=== PATIENT | male | born 1970 | race African-American/Black ===

== ENCOUNTER 2021-07-16 10:26 | Inpatient (IN) | payer MEDICAID ==
[~2021-07-16] VITALS: Ht 180.3 cm; Wt 105.2 kg
[2021-07-16] MEDS ORDERED: ACETAMINOPHEN 325MG TABLET PO STA (10:40)
[2021-07-16] MEDS ORDERED: VANCOMYCIN 1 G PREMIX 200 ML IV ONE (10:45)
[2021-07-16] MEDS ORDERED: PIPERACILLIN/TAZ 3.375G PREMIX 50 ML IV ONE (10:45)
[2021-07-16 11:18] LABS: HEMATOCRIT. 34.1 % (42.0-52.0); HEMOGLOBIN. 11.4 g/dL (14.0-18.0); MEAN CORPUSCULAR VOLUME 74.3 fL (80.0-94.0); MEAN PLATELET VOLUME 9.9 fl (7.4-10.4); PLATELET 97 x1000/uL (130-400); RED BLOOD CELL COUNT 4.58 mill/uL (4.7-6.1); RED CELL DISTRIBUTION WIDTH 14.6 % (11.6-14.6)
[2021-07-16 11:19] LABS: CHLORIDE 88 mEq/L (98-107)
[2021-07-16 11:28] LABS: CREATINE KINASE 774 IU/L (39-308)
[2021-07-16 12:39] LABS: PLATELET ESTIMATE DECREASED
[2021-07-16 13:03] LABS: CLARITY URINE TURBID (CLEAR); COLOR URINE DARK YELLOW (YELLOW); KETONES URINE TRACE (NEGATIVE); LEUKOCYTE ESTERASE URINE 2+ (NEGATIVE); NITRITE URINE NEGATIVE (NEGATIVE); OCCULT BLOOD URINE 3+ (NEGATIVE); PROTEIN URINE 3+ (NEGATIVE)
[2021-07-16 14:58] LABS: D-DIMER 2.25 mg/L FEU (<0.50); INR 1.2; PROTHROMBIN TIME 12.4 sec (9.6-11.0)
[2021-07-16 15:32] LABS: FIBRINOGEN > 850 mg/dL (200-400)
[2021-07-16 17:38] VITALS: BP 116/62
[2021-07-16] MEDS ORDERED: DEXTROSE 50% WATER 50ML SYRINGE IV PRN (17:45)
[2021-07-16] MEDS ORDERED: METF-416 PO (17:49)
[2021-07-16] MEDS ORDERED: WARF3TAB58 PO (17:49)
[2021-07-16] MEDS ORDERED: CLONIDINE 0.1MG TABLET PO PRN (18:00)
[2021-07-16] MEDS ORDERED: DOCUSATE SODIUM 100MG CAPSULE PO PRN (18:00)
[2021-07-16] MEDS ORDERED: IPRATROPIUM/ALBUTEROL 0.5-3(2.5)MG/3ML NEB HHN PRN (18:00)
[2021-07-16] MEDS ORDERED: PNEUMOCOCCAL 23-VAL P-SAC VAC 0.5 ML IM ONE (18:30)
[2021-07-16] MEDS ORDERED: POTASSIUM CHLORIDE 20MEQ TABLET SR PO NR (18:30)
[2021-07-16] MEDS ORDERED: VANCOMYCIN 2,000 MG in DEXT 5% WATER 500 ML IV NR (20:00)
[2021-07-16 20:59] LABS: CHLORIDE 87 mEq/L (98-107)
[2021-07-16] MEDS: BLOOD SUGAR DIAGNOSTIC STRIP TEST SCH (21:00)
[2021-07-16] MEDS: PIPERACILLIN/TAZOBACTAM 3.375 G in DEXTROSE 5% WATER 50 ML IV SCH (21:00)
[2021-07-16] MEDS: INSULIN LISPRO 100 UNITS/ML SUBCUT SCH (21:02)
[2021-07-16] MEDS: ACETAMINOPHEN 325MG TABLET PO PRN (21:02)
[2021-07-16 21:05] LABS: PHOSPHORUS 1.9 mg/dL (2.5-4.9)
[2021-07-16 21:06] LABS: LDL CHOLESTEROL 41 mg/dL (5-100)
[2021-07-16 21:07] LABS: HDL CHOLESTEROL 10 mg/dL (40-59)
[2021-07-16 21:08] LABS: CREATINE KINASE 654 IU/L (39-308)
[2021-07-16 21:10] LABS: CREATINE KINASE MB FRACTION < 1.0 ng/mL (0.5-3.6)
[2021-07-16] MEDS ORDERED: INSULIN LISPRO 100 UNITS/ML SUBCUT NR (23:00)
[2021-07-16] MEDS: SODIUM CHLORIDE 0.9% 1,000 ML IV SCH (23:15)
[2021-07-17] VITALS (8 sets, daily range): BP systolic 76–113; BP diastolic 42–67
[2021-07-17] MEDS: INSULIN GLARGINE UD 100 UNITS/ML SYR SUBCUT SCH ×3 (00:49→23:24)
[2021-07-17] MEDS: SODIUM CHLORIDE 0.9% 1,000 ML IV SCH (03:31)
[2021-07-17] MEDS: BLOOD SUGAR DIAGNOSTIC STRIP TEST SCH ×4 (07:40→21:00)
[2021-07-17] MEDS: PIPERACILLIN/TAZOBACTAM 3.375 G in DEXTROSE 5% WATER 50 ML IV SCH (08:24)
[2021-07-17] MEDS: INSULIN LISPRO 100 UNITS/ML SUBCUT SCH ×4 (08:27→23:24)
[2021-07-17] MEDS: ACETAMINOPHEN 325MG TABLET PO PRN ×2 (08:31→17:25)
[2021-07-17 09:07] LABS: CHLORIDE 87 mEq/L (98-107)
[2021-07-17 09:11] LABS: HEMATOCRIT. 35.8 % (42.0-52.0); HEMOGLOBIN. 11.8 g/dL (14.0-18.0); MEAN CORPUSCULAR HEMOGLOBIN 24.8 pg (28.0-32.0); PLATELET 93 x1000/uL (130-400); RED BLOOD CELL COUNT 4.77 mill/uL (4.7-6.1); RED CELL DISTRIBUTION WIDTH 14.8 % (11.6-14.6)
[2021-07-17 09:13] LABS: PHOSPHORUS 1.6 mg/dL (2.5-4.9)
[2021-07-17 09:17] LABS: CREATINE KINASE 435 IU/L (39-308)
[2021-07-17 10:31] LABS: BG BASE EXCESS -3.6 mmol/L (-2.0-2.0); BG CARBOXYHEMOGLOBIN 0.6 % (0.5-1.5); BG DEOXYHEMOGLOBIN 3.8 % (0.0-5.0); BG HCO3 ACT 18.6 mmol/L (22.0-26.0); BG METHEMOGLOBIN 0.2 % (0.0-1.5); BG OXYGEN SATURATION 96.2 % (92.0-98.5); BG OXYHEMOGLOBIN 95.4 % (94.0-97.0); BG PCO2 25.9 mmHg (35.0-45.0); BG PH 7.475 (7.350-7.450); BG PO2 79.1 mmHg (75.0-100.0); BG SAMPLE SITE RIGHT RADIAL; BG VENT MODE NASAL CANNULA
[2021-07-17] MEDS: HYDROCODONE/ACETAMINOPHEN 5/325MG TABLET PO PRN ×2 (10:32→17:26)
[2021-07-17] MEDS ORDERED: SODIUM PHOS,M-BASIC-D-BASIC 20 MM in DEXT 5% WATER 243.3333 ML IV SCH (12:00)
[2021-07-17] MEDS: THROAT LOZENGES-BENZOCAINE/MENTH/CETYLPYRD CL LOZENGES MM PRN (12:13)
[2021-07-17 13:59] LABS: HEPATITIS B SURFACE AB 812.3 mIU/mL
[2021-07-17 14:10] LABS: HEPATITIS B SURFACE ANTIGEN NEGATIVE
[2021-07-17 18:36] LABS: PLATELET ESTIMATE DECREASED
[2021-07-17] MEDS ORDERED: VANCOMYCIN 1 G PREMIX 200 ML IV SCH (20:00)
[2021-07-17] MEDS ORDERED: HEPARIN 5000 UNITS/ML VIAL SUBCUT SCH (21:00)
[2021-07-17] MEDS: MAGNESIUM/ALUMINUM HYDROXIDE/SIMETHICONE 30ML UDC PO PRN (21:38)
[2021-07-17] MEDS ORDERED: HEPARIN 25,000 UNITS PREMIX 250 ML IV PRN (21:45)
[2021-07-17] MEDS ORDERED: HEPARIN 5000 UNITS/ML VIAL IV PRN (21:45)
[2021-07-17] MEDS ORDERED: SODIUM CHLORIDE 0.9% 1000ML BAG (SEPSIS BOLUS) IV ONE (22:00)
[2021-07-17] MEDS ORDERED: ALBUMIN HUMAN 25GM/100ML (25%) IV NR (22:00)
[2021-07-18] VITALS (101 sets, daily range): BP systolic 60–134; BP diastolic 19–117
[2021-07-18] MEDS ORDERED: HEPARIN 5000 UNITS/ML VIAL IV SCH (00:15)
[2021-07-18 00:18] LABS: D-DIMER 2.13 mg/L FEU (<0.50)
[2021-07-18] MEDS: MEROPENEM 1,000 MG in SODIUM CHLORIDE 0.9% 100 ML IV SCH ×2 (00:43→22:28)
[2021-07-18] MEDS: HEPARIN 25,000 UNITS PREMIX 250 ML IV SCH ×2 (01:23→16:57)
[2021-07-18] MEDS: PHENYLEPHRINE 100 MG in DEXT 5% WATER 240 ML IV PRN ×2 (03:55→09:20)
[2021-07-18] MEDS: HYDROCODONE/ACETAMINOPHEN 5/325MG TABLET PO PRN ×2 (03:58→22:28)
[2021-07-18] MEDS: ACETAMINOPHEN 325MG TABLET PO PRN (04:47)
[2021-07-18] MEDS ORDERED: SODIUM CHLORIDE 0.9% 1000ML BAG (SEPSIS BOLUS) IV ONE (05:15)
[2021-07-18] MEDS: MAGNESIUM/ALUMINUM HYDROXIDE/SIMETHICONE 30ML UDC PO PRN (05:39)
[2021-07-18] MEDS ORDERED: NOREPINEPHRINE 32 MG in DEXT 5% WATER 218 ML IV PRN (06:00)
[2021-07-18 06:08] LABS: CHLORIDE 91 mEq/L (98-107); HEMATOCRIT. 30.4 % (42.0-52.0); MEAN CORPUSCULAR HEMOGLOBIN 24.4 pg (28.0-32.0); MEAN CORPUSCULAR VOLUME 74.2 fL (80.0-94.0); MEAN PLATELET VOLUME 11.8 fl (7.4-10.4); PLATELET 101 x1000/uL (130-400); RED CELL DISTRIBUTION WIDTH 15.1 % (11.6-14.6)
[2021-07-18 06:25] LABS: PHOSPHORUS 4.3 mg/dL (2.5-4.9)
[2021-07-18] MEDS ORDERED: LIDOCAINE HCL 1% 20ML VIAL (Pyxis) INJ ONE ×2 (08:25→13:30)
[2021-07-18] MEDS: BLOOD SUGAR DIAGNOSTIC STRIP TEST SCH ×4 (08:36→21:24)
[2021-07-18] MEDS: INSULIN LISPRO 100 UNITS/ML SUBCUT SCH ×4 (09:08→21:24)
[2021-07-18 11:10] LABS: PLATELET ESTIMATE SLIGHTLY DECREASED
[2021-07-18] MEDS: INSULIN GLARGINE UD 100 UNITS/ML SYR SUBCUT SCH (11:31)
[2021-07-18] MEDS: DOXYCYCLINE 100 MG in DEXT 5% WATER 100 ML IV SCH ×2 (12:27→22:28)
[2021-07-18] MEDS ORDERED: INSULIN LISPRO 100 UNITS/ML SUBCUT SCH (13:00)
[2021-07-18] MEDS ORDERED: HEPARIN 1000 UNITS/ML 10ML ONE (13:30)
[2021-07-18] MEDS: PHENYLEPHRINE 100 MG in SODIUM CHLORIDE 0.9% 240 ML IV PRN ×3 (13:49→23:41)
[2021-07-18] MEDS: HEPARIN 5000 UNITS/ML VIAL IV PRN (16:48)
[2021-07-18] MEDS: ONDANSETRON HCL 4MG/2ML INJ IV PRN ×2 (17:24→23:27)
[2021-07-18 17:37] LABS: BG BASE EXCESS -20.2 mmol/L (-2.0-2.0); BG CARBOXYHEMOGLOBIN 0.3 % (0.5-1.5); BG FRACTION INSPIRED OXYGEN 36; BG HCO3 ACT 4.7 mmol/L (22.0-26.0); BG METHEMOGLOBIN 0.4 % (0.0-1.5); BG OXYHEMOGLOBIN 97.3 % (94.0-97.0); BG PCO2 11.4 mmHg (35.0-45.0); BG PH 7.232 (7.350-7.450); BG PO2 135.8 mmHg (75.0-100.0); BG SAMPLE SITE RIGHT RADIAL; BG TOTAL HEMOGLOBIN 12.3 g/dL (12.0-18.0); BG VENT MODE NASAL CANNULA
[2021-07-18] MEDS ORDERED: INSULIN GLARGINE UD 100 UNITS/ML SYR SUBCUT SCH (22:00)
[2021-07-19] VITALS (105 sets, daily range): BP systolic 57–161; BP diastolic 25–130
[2021-07-19] MEDS: HEPARIN 5000 UNITS/ML VIAL IV PRN ×3 (00:02→17:14)
[2021-07-19] MEDS: NOREPINEPHRINE 32 MG in SODIUM CHLORIDE 0.9% 218 ML IV PRN (02:50)
[2021-07-19] MEDS: PHENYLEPHRINE 100 MG in SODIUM CHLORIDE 0.9% 240 ML IV PRN ×3 (05:09→21:54)
[2021-07-19 06:12] LABS: CHLORIDE 96 mEq/L (98-107)
[2021-07-19 06:22] LABS: HEMATOCRIT. 32.5 % (42.0-52.0); HEMOGLOBIN. 10.5 g/dL (14.0-18.0); MEAN CORPUSCULAR HEMOGLOBIN 24.3 pg (28.0-32.0); MEAN CORPUSCULAR VOLUME 75.4 fL (80.0-94.0); MEAN PLATELET VOLUME 11.7 fl (7.4-10.4); PLATELET 126 x1000/uL (130-400); RED BLOOD CELL COUNT 4.31 mill/uL (4.7-6.1); RED CELL DISTRIBUTION WIDTH 15.7 % (11.6-14.6)
[2021-07-19 06:34] LABS: PHOSPHORUS 8.1 mg/dL (2.5-4.9)
[2021-07-19] MEDS ORDERED: SODIUM BICARBONATE 8.4% 1 MEQ/ML 50ML SYR IV ONE (07:15)
[2021-07-19] MEDS ORDERED: SODIUM BICARBONATE 150 MEQ in DEXTROSE 5% WATER 1,000 ML IV SCH (07:15)
[2021-07-19] MEDS: HEPARIN 25,000 UNITS PREMIX 250 ML IV SCH (07:19)
[2021-07-19] MEDS ORDERED: SODIUM BICARBONATE 8.4% 1 MEQ/ML 50ML SYR IV SCH (07:45)
[2021-07-19] MEDS: BLOOD SUGAR DIAGNOSTIC STRIP TEST SCH ×4 (07:50→20:20)
[2021-07-19 08:14] LABS: NUCLEATED RED BLOOD CELLS 1 /100 WBC
[2021-07-19 08:16] LABS: PLATELET ESTIMATE SLIGHTLY DECREASED
[2021-07-19] MEDS: INSULIN LISPRO 100 UNITS/ML SUBCUT SCH ×4 (08:20→20:19)
[2021-07-19 08:47] LABS: BG BASE EXCESS -18.7 mmol/L (-2.0-2.0); BG CARBOXYHEMOGLOBIN 0.5 % (0.5-1.5); BG FRACTION INSPIRED OXYGEN 36; BG HCO3 ACT 6.3 mmol/L (22.0-26.0); BG METHEMOGLOBIN 0.7 % (0.0-1.5); BG OXYHEMOGLOBIN 95.8 % (94.0-97.0); BG PCO2 14.9 mmHg (35.0-45.0); BG PH 7.242 (7.350-7.450); BG SAMPLE SITE LEFT RADIAL; BG TOTAL HEMOGLOBIN 11.9 g/dL (12.0-18.0); BG VENT MODE NASAL CANNULA
[2021-07-19] MEDS ORDERED: SODIUM BICARBONATE 8.4% 1 MEQ/ML 50ML SYR IV NR (09:08)
[2021-07-19 09:11] LABS: ANTI-NUCLEAR ANTIBODIES DIRECT Negative (Negative)
[2021-07-19 10:19] LABS: BETA HYDROXYBUTYRATE 1.5 mMol/L (0.0-0.3)
[2021-07-19] MEDS: INSULIN GLARGINE UD 100 UNITS/ML SYR SUBCUT SCH (11:48)
[2021-07-19] MEDS: DOXYCYCLINE 100 MG in DEXT 5% WATER 100 ML IV SCH (13:33)
[2021-07-19 15:25] LABS: BG BASE EXCESS -2.5 mmol/L (-2.0-2.0); BG CARBOXYHEMOGLOBIN 0.3 % (0.5-1.5); BG DEOXYHEMOGLOBIN 4.5 % (0.0-5.0); BG FRACTION INSPIRED OXYGEN 44; BG HCO3 ACT 18.9 mmol/L (22.0-26.0); BG METHEMOGLOBIN 0.3 % (0.0-1.5); BG OXYGEN SATURATION 95.5 % (92.0-98.5); BG OXYHEMOGLOBIN 94.9 % (94.0-97.0); BG PCO2 23.6 mmHg (35.0-45.0); BG PH 7.521 (7.350-7.450); BG PO2 81.3 mmHg (75.0-100.0); BG SAMPLE SITE RIGHT RADIAL; BG TOTAL HEMOGLOBIN 11.4 g/dL (12.0-18.0); BG VENT MODE NASAL CANNULA
[2021-07-19] MEDS: VASOPRESSIN 20 UNIT in SODIUM CHLORIDE 0.9% 99 ML IV PRN ×2 (16:59→21:55)
[2021-07-19] MEDS: ACETAMINOPHEN 325MG TABLET PO PRN (20:20)
[2021-07-19] MEDS: MEROPENEM 1,000 MG in SODIUM CHLORIDE 0.9% 100 ML IV SCH (21:51)
[2021-07-19] MEDS: FLUCONAZOLE 400MG/200ML BAG 200 ML IV SCH (21:53)
[2021-07-19] MEDS ORDERED: VANCOMYCIN 1500MG in DEXTROSE 5% WATER 250ML IV NR (22:00)
[2021-07-19] MEDS ORDERED: INSULIN GLARGINE UD 100 UNITS/ML SYR SUBCUT SCH ×2 (22:00)
[2021-07-19] MEDS ORDERED: VANCOMYCIN 1,750 MG in DEXT 5% WATER 500 ML IV NR (22:00)
[2021-07-19] MEDS: HYDROCORTISONE SOD SUCCINATE 100 MG/2 ML VIAL IV SCH (22:08)
[2021-07-19] MEDS: HYDROCODONE/ACETAMINOPHEN 5/325MG TABLET PO PRN (22:10)
[2021-07-20] VITALS (92 sets, daily range): BP systolic 79–162; BP diastolic 44–84
[2021-07-20] MEDS: DOXYCYCLINE 100 MG in DEXT 5% WATER 100 ML IV SCH ×3 (01:03→22:01)
[2021-07-20] MEDS: HEPARIN 25,000 UNITS PREMIX 250 ML IV SCH ×2 (02:03→22:03)
[2021-07-20] MEDS: PHENYLEPHRINE 100 MG in SODIUM CHLORIDE 0.9% 240 ML IV PRN (03:08)
[2021-07-20] MEDS: HYDROCORTISONE SOD SUCCINATE 100 MG/2 ML VIAL IV SCH ×3 (05:52→21:58)
[2021-07-20] MEDS: NOREPINEPHRINE 32 MG in SODIUM CHLORIDE 0.9% 218 ML IV PRN (05:55)
[2021-07-20] MEDS: VASOPRESSIN 20 UNIT in SODIUM CHLORIDE 0.9% 99 ML IV PRN (05:56)
[2021-07-20 06:53] LABS: HEMATOCRIT. 32.1 % (42.0-52.0); HEMOGLOBIN. 10.7 g/dL (14.0-18.0); MEAN CORPUSCULAR HEMOGLOBIN 24.5 pg (28.0-32.0); MEAN CORPUSCULAR VOLUME 73.8 fL (80.0-94.0); PLATELET 129 x1000/uL (130-400); RED BLOOD CELL COUNT 4.34 mill/uL (4.7-6.1); RED CELL DISTRIBUTION WIDTH 15.2 % (11.6-14.6)
[2021-07-20 07:01] LABS: CHLORIDE 98 mEq/L (98-107)
[2021-07-20 07:09] LABS: TOTAL IRON BINDING CAPACITY 137 ug/dL (250-450)
[2021-07-20 07:12] LABS: CREATINE KINASE 698 IU/L (39-308)
[2021-07-20 07:40] LABS: VITAMIN B12 SERUM >2000 pg/mL pg/mL (211-911)
[2021-07-20] MEDS: BLOOD SUGAR DIAGNOSTIC STRIP TEST SCH ×4 (07:50→21:54)
[2021-07-20 08:04] LABS: PLATELET ESTIMATE SLIGHTLY DECREASED
[2021-07-20] MEDS: INSULIN LISPRO 100 UNITS/ML SUBCUT SCH ×4 (08:58→21:57)
[2021-07-20 09:07] LABS: GLOMERULAR BASEMENT MEMB AB 3 units (0-20)
[2021-07-20 09:27] LABS: BG BASE EXCESS -3.9 mmol/L (-2.0-2.0); BG CARBOXYHEMOGLOBIN 0.6 % (0.5-1.5); BG DEOXYHEMOGLOBIN 1.1 % (0.0-5.0); BG FRACTION INSPIRED OXYGEN 40; BG HCO3 ACT 20.4 mmol/L (22.0-26.0); BG METHEMOGLOBIN 0.2 % (0.0-1.5); BG OXYGEN SATURATION 98.9 % (92.0-98.5); BG OXYHEMOGLOBIN 98.1 % (94.0-97.0); BG PCO2 34.5 mmHg (35.0-45.0); BG PO2 187.7 mmHg (75.0-100.0); BG SAMPLE SITE RIGHT RADIAL; BG TOTAL HEMOGLOBIN 10.9 g/dL (12.0-18.0); BG VENT MODE MASK - BIPAP
[2021-07-20] MEDS: INSULIN GLARGINE UD 100 UNITS/ML SYR SUBCUT SCH ×2 (10:55→21:58)
[2021-07-20 13:11] LABS: ATYPICAL P-ANCA <1:20 titer (Neg:<1:20); CYTOPLASMIC C-ANCA <1:20 titer (Neg:<1:20); PERINUCLEAR P-ANCA <1:20 titer (Neg:<1:20)
[2021-07-20 14:17] LABS: PROTHROMBIN TIME 52.5 sec (9.6-11.0)
[2021-07-20 14:18] LABS: INR 5.6
[2021-07-20 14:19] LABS: PARTIAL THROMBOPLASTIN TIME 137.2 sec (23.4-31.0)
[2021-07-20] MEDS: HYDROCODONE/ACETAMINOPHEN 5/325MG TABLET PO PRN (14:44)
[2021-07-20 17:48] LABS: ETHANOL BLOOD < 10 mg/dL
[2021-07-20 17:52] LABS: T4 FREE 1.29 ng/dL (0.76-1.46)
[2021-07-20 18:06] LABS: FOLIC ACID (FOLATE) SERUM > 20.00 ng/mL (>5.38)
[2021-07-20] MEDS: MEROPENEM 1,000 MG in SODIUM CHLORIDE 0.9% 100 ML IV SCH (21:58)
[2021-07-20] MEDS: FLUCONAZOLE 400MG/200ML BAG 200 ML IV SCH (21:59)
[2021-07-21] VITALS (90 sets, daily range): BP systolic 83–133; BP diastolic 47–84
[2021-07-21] MEDS: HYDROCORTISONE SOD SUCCINATE 100 MG/2 ML VIAL IV SCH ×2 (05:25→21:48)
[2021-07-21] MEDS: NOREPINEPHRINE 32 MG in SODIUM CHLORIDE 0.9% 218 ML IV PRN (05:25)
[2021-07-21 06:45] LABS: HEMATOCRIT. 29.9 % (42.0-52.0); HEMOGLOBIN. 9.8 g/dL (14.0-18.0); MEAN CORPUSCULAR HEMOGLOBIN 24.2 pg (28.0-32.0); MEAN CORPUSCULAR VOLUME 74.2 fL (80.0-94.0); PLATELET 137 x1000/uL (130-400); RED BLOOD CELL COUNT 4.03 mill/uL (4.7-6.1); RED CELL DISTRIBUTION WIDTH 15.6 % (11.6-14.6)
[2021-07-21 07:44] LABS: PARTIAL THROMBOPLASTIN TIME 54.4 sec (23.4-31.0); PROTHROMBIN TIME 52.9 sec (9.6-11.0)
[2021-07-21 08:12] LABS: PHOSPHORUS 8.7 mg/dL (2.5-4.9)
[2021-07-21] MEDS: BLOOD SUGAR DIAGNOSTIC STRIP TEST SCH ×4 (08:26→21:48)
[2021-07-21 08:28] LABS: BG BASE EXCESS -4.9 mmol/L (-2.0-2.0); BG CARBOXYHEMOGLOBIN 0.6 % (0.5-1.5); BG DEOXYHEMOGLOBIN 14.7 % (0.0-5.0); BG FRACTION INSPIRED OXYGEN 21; BG HCO3 ACT 19.8 mmol/L (22.0-26.0); BG METHEMOGLOBIN 0.3 % (0.0-1.5); BG OXYGEN SATURATION 85.2 % (92.0-98.5); BG OXYHEMOGLOBIN 84.4 % (94.0-97.0); BG PCO2 35.2 mmHg (35.0-45.0); BG PH 7.368 (7.350-7.450); BG PO2 56.8 mmHg (75.0-100.0); BG SAMPLE SITE LEFT RADIAL; BG TOTAL HEMOGLOBIN 10.8 g/dL (12.0-18.0); BG VENT MODE ROOM AIR
[2021-07-21] MEDS: INSULIN LISPRO 100 UNITS/ML SUBCUT SCH ×4 (08:34→21:49)
[2021-07-21 09:01] LABS: INR 5.7
[2021-07-21 09:07] LABS: NUCLEATED RED BLOOD CELLS 2 /100 WBC; PLATELET ESTIMATE NORMAL
[2021-07-21] MEDS: DOXYCYCLINE 100 MG in DEXT 5% WATER 100 ML IV SCH ×2 (11:24→23:13)
[2021-07-21] MEDS: INSULIN GLARGINE UD 100 UNITS/ML SYR SUBCUT SCH ×2 (11:24→21:52)
[2021-07-21 17:03] LABS: PROTHROMBIN TIME 42.8 sec (9.6-11.0)
[2021-07-21 17:21] LABS: INR 4.5
[2021-07-21 19:10] LABS: ANTI-MYELOPEROXIDASE AB < 9.0 U/mL (0.0-9.0); ANTI-PROTEINASE 3 ABS < 3.5 U/mL (0.0-3.5)
[2021-07-21] MEDS: MEROPENEM 1,000 MG in SODIUM CHLORIDE 0.9% 100 ML IV SCH (21:47)
[2021-07-21] MEDS: FAMOTIDINE 20MG TABLET PO SCH (21:48)
[2021-07-21] MEDS: FLUCONAZOLE 400MG/200ML BAG 200 ML IV SCH (21:48)
[2021-07-22] VITALS (83 sets, daily range): BP systolic 72–123; BP diastolic 45–83
[2021-07-22] MEDS: THROAT LOZENGES-BENZOCAINE/MENTH/CETYLPYRD CL LOZENGES MM PRN (00:24)
[2021-07-22 06:16] LABS: HEMATOCRIT. 28.9 % (42.0-52.0); HEMOGLOBIN. 9.5 g/dL (14.0-18.0); LYMPHOCYTES % 7.9 % (20.0-50.0); MEAN CORPUSCULAR VOLUME 73.2 fL (80.0-94.0); MEAN PLATELET VOLUME 10.8 fl (7.4-10.4); MONOCYTES % 1.8 % (2.0-8.0); NEUTROPHILS % 87.3 % (40.0-76.0); PLATELET 152 x1000/uL (130-400); RED BLOOD CELL COUNT 3.95 mill/uL (4.7-6.1); RED CELL DISTRIBUTION WIDTH 15.5 % (11.6-14.6)
[2021-07-22 06:22] LABS: CHLORIDE 101 mEq/L (98-107)
[2021-07-22 06:30] LABS: PHOSPHORUS 6.5 mg/dL (2.5-4.9)
[2021-07-22 06:34] LABS: CREATINE KINASE 128 IU/L (39-308)
[2021-07-22] MEDS: BLOOD SUGAR DIAGNOSTIC STRIP TEST SCH ×4 (08:00→21:00)
[2021-07-22] MEDS: INSULIN LISPRO 100 UNITS/ML SUBCUT SCH ×4 (08:20→21:00)
[2021-07-22] MEDS: HYDROCORTISONE SOD SUCCINATE 100 MG/2 ML VIAL IV SCH ×2 (09:09→21:24)
[2021-07-22] MEDS: INSULIN GLARGINE UD 100 UNITS/ML SYR SUBCUT SCH ×2 (09:09→21:27)
[2021-07-22] MEDS: DOXYCYCLINE 100 MG in DEXT 5% WATER 100 ML IV SCH ×2 (11:21→23:24)
[2021-07-22] MEDS: CALCIUM CARBONATE 500MG TABLET CHEW PO SCH ×2 (12:21→17:56)
[2021-07-22 17:52] LABS: HEPATITIS B SURFACE ANTIGEN NEGATIVE
[2021-07-22] MEDS: FAMOTIDINE 20MG TABLET PO SCH (21:23)
[2021-07-22] MEDS: FLUCONAZOLE 400MG/200ML BAG 200 ML IV SCH (21:24)
[2021-07-22] MEDS: MEROPENEM 1,000 MG in SODIUM CHLORIDE 0.9% 100 ML IV SCH (21:52)
[2021-07-23] VITALS (68 sets, daily range): BP systolic 83–166; BP diastolic 30–104
[2021-07-23 05:27] LABS: HEMATOCRIT. 29.9 % (42.0-52.0); HEMOGLOBIN. 9.7 g/dL (14.0-18.0); MEAN CORPUSCULAR HEMOGLOBIN 24.1 pg (28.0-32.0); MEAN CORPUSCULAR VOLUME 74.1 fL (80.0-94.0); MEAN PLATELET VOLUME 10.3 fl (7.4-10.4); PLATELET 127 x1000/uL (130-400); RED BLOOD CELL COUNT 4.04 mill/uL (4.7-6.1)
[2021-07-23 05:38] LABS: CHLORIDE 102 mEq/L (98-107)
[2021-07-23 05:48] LABS: CREATINE KINASE 94 IU/L (39-308)
[2021-07-23 05:58] LABS: PHOSPHORUS 8.3 mg/dL (2.5-4.9)
[2021-07-23] MEDS: BLOOD SUGAR DIAGNOSTIC STRIP TEST SCH ×4 (08:17→21:00)
[2021-07-23] MEDS: INSULIN LISPRO 100 UNITS/ML SUBCUT SCH ×4 (08:18→21:00)
[2021-07-23] MEDS: CALCIUM CARBONATE 500MG TABLET CHEW PO SCH ×3 (09:01→18:23)
[2021-07-23] MEDS: HYDROCORTISONE SOD SUCCINATE 100 MG/2 ML VIAL IV SCH ×2 (09:16→21:28)
[2021-07-23] MEDS: INSULIN GLARGINE UD 100 UNITS/ML SYR SUBCUT SCH ×2 (10:00→21:47)
[2021-07-23] MEDS: DOXYCYCLINE 100 MG in DEXT 5% WATER 100 ML IV SCH ×2 (11:07→23:41)
[2021-07-23] MEDS: INSULIN GLARGINE UD 100 UNITS/ML SYR SUBCUT PRN (11:14)
[2021-07-23 11:43] LABS: INR 2.9; PROTHROMBIN TIME 28.5 sec (9.6-11.0)
[2021-07-23] MEDS: MIDODRINE HCL 5MG TABLET PO SCH (12:52)
[2021-07-23] MEDS: NOREPINEPHRINE 32 MG in SODIUM CHLORIDE 0.9% 218 ML IV PRN (13:58)
[2021-07-23 17:04] LABS: PLATELET ESTIMATE DECREASED
[2021-07-23] MEDS: FAMOTIDINE 20MG TABLET PO SCH (21:28)
[2021-07-23] MEDS: MEROPENEM 1,000 MG in SODIUM CHLORIDE 0.9% 100 ML IV SCH (21:28)
[2021-07-23] MEDS: FLUCONAZOLE 400MG/200ML BAG 200 ML IV SCH (21:29)
[2021-07-24] VITALS (67 sets, daily range): BP systolic 84–130; BP diastolic 45–86
[2021-07-24 05:49] LABS: CHLORIDE 108 mEq/L (98-107); HEMATOCRIT. 33.2 % (42.0-52.0); HEMOGLOBIN. 10.6 g/dL (14.0-18.0); MEAN CORPUSCULAR HEMOGLOBIN 23.9 pg (28.0-32.0); MEAN CORPUSCULAR VOLUME 74.5 fL (80.0-94.0); MEAN PLATELET VOLUME 10.4 fl (7.4-10.4); PLATELET 119 x1000/uL (130-400); RED BLOOD CELL COUNT 4.45 mill/uL (4.7-6.1); RED CELL DISTRIBUTION WIDTH 15.9 % (11.6-14.6)
[2021-07-24 06:37] LABS: PHOSPHORUS 8.2 mg/dL (2.5-4.9)
[2021-07-24] MEDS: INSULIN LISPRO 100 UNITS/ML SUBCUT SCH ×4 (08:20→21:22)
[2021-07-24] MEDS: BLOOD SUGAR DIAGNOSTIC STRIP TEST SCH ×4 (08:41→21:19)
[2021-07-24] MEDS: CALCIUM CARBONATE 500MG TABLET CHEW PO SCH ×3 (09:11→18:15)
[2021-07-24] MEDS: HYDROCORTISONE SOD SUCCINATE 100 MG/2 ML VIAL IV SCH ×2 (09:11→21:19)
[2021-07-24] MEDS: DOXYCYCLINE 100 MG in DEXT 5% WATER 100 ML IV SCH ×2 (10:05→23:31)
[2021-07-24] MEDS: INSULIN GLARGINE UD 100 UNITS/ML SYR SUBCUT SCH ×2 (10:06→21:22)
[2021-07-24 11:34] LABS: INR 2.8; PROTHROMBIN TIME 28.1 sec (9.6-11.0)
[2021-07-24] MEDS ORDERED: WARFARIN SODIUM 5MG TABLET PO SCH (18:00)
[2021-07-24 18:18] LABS: PLATELET ESTIMATE DECREASED
[2021-07-24] MEDS: MEROPENEM 1,000 MG in SODIUM CHLORIDE 0.9% 100 ML IV SCH (21:17)
[2021-07-24] MEDS: FLUCONAZOLE 400MG/200ML BAG 200 ML IV SCH (21:19)
[2021-07-24] MEDS: FAMOTIDINE 20MG TABLET PO SCH (21:19)
[2021-07-25] VITALS (58 sets, daily range): BP systolic 98–127; BP diastolic 59–85
[2021-07-25 05:48] LABS: HEMATOCRIT. 32.6 % (42.0-52.0); HEMOGLOBIN. 10.5 g/dL (14.0-18.0); MEAN CORPUSCULAR HEMOGLOBIN 24.1 pg (28.0-32.0); MEAN CORPUSCULAR VOLUME 74.9 fL (80.0-94.0); MEAN PLATELET VOLUME 10.5 fl (7.4-10.4); PLATELET 103 x1000/uL (130-400); RED BLOOD CELL COUNT 4.36 mill/uL (4.7-6.1); RED CELL DISTRIBUTION WIDTH 15.9 % (11.6-14.6)
[2021-07-25 06:13] LABS: INR 2.9; PROTHROMBIN TIME 28.7 sec (9.6-11.0)
[2021-07-25] MEDS ORDERED: FUROSEMIDE 100MG/10ML VIAL IVP NR (08:00)
[2021-07-25] MEDS: BLOOD SUGAR DIAGNOSTIC STRIP TEST SCH ×4 (08:20→22:35)
[2021-07-25] MEDS: HYDROCORTISONE SOD SUCCINATE 100 MG/2 ML VIAL IV SCH ×2 (08:32→21:23)
[2021-07-25] MEDS: CALCIUM CARBONATE 500MG TABLET CHEW PO SCH ×3 (08:33→17:58)
[2021-07-25] MEDS: INSULIN LISPRO 100 UNITS/ML SUBCUT SCH ×4 (08:49→22:43)
[2021-07-25] MEDS: INSULIN GLARGINE UD 100 UNITS/ML SYR SUBCUT SCH ×2 (10:36→22:43)
[2021-07-25] MEDS: DOXYCYCLINE 100 MG in DEXT 5% WATER 100 ML IV SCH ×2 (10:36→23:08)
[2021-07-25 13:07] LABS: NUCLEATED RED BLOOD CELLS 1 /100 WBC; PLATELET ESTIMATE SLIGHTLY DECREASED
[2021-07-25] MEDS ORDERED: WARFARIN SODIUM 5MG TABLET PO SCH (18:00)
[2021-07-25] MEDS: FAMOTIDINE 20MG TABLET PO SCH (21:23)
[2021-07-25] MEDS: MEROPENEM 1,000 MG in SODIUM CHLORIDE 0.9% 100 ML IV SCH (21:24)
[2021-07-25] MEDS: FLUCONAZOLE 400MG/200ML BAG 200 ML IV SCH (22:04)
[2021-07-26] VITALS (55 sets, daily range): BP systolic 108–152; BP diastolic 58–92
[2021-07-26] MEDS: MIDODRINE HCL 5MG TABLET PO SCH (05:47)
[2021-07-26 05:55] LABS: HEMATOCRIT. 32.3 % (42.0-52.0); HEMOGLOBIN. 10.4 g/dL (14.0-18.0); MEAN CORPUSCULAR HEMOGLOBIN 24.3 pg (28.0-32.0); MEAN CORPUSCULAR VOLUME 75.4 fL (80.0-94.0); PLATELET 99 x1000/uL (130-400); RED BLOOD CELL COUNT 4.28 mill/uL (4.7-6.1); RED CELL DISTRIBUTION WIDTH 15.7 % (11.6-14.6)
[2021-07-26 06:34] LABS: PROTHROMBIN TIME 44.5 sec (9.6-11.0)
[2021-07-26] MEDS: BLOOD SUGAR DIAGNOSTIC STRIP TEST SCH ×4 (08:40→20:53)
[2021-07-26] MEDS: HYDROCORTISONE SOD SUCCINATE 100 MG/2 ML VIAL IV SCH (08:46)
[2021-07-26] MEDS: CALCIUM CARBONATE 500MG TABLET CHEW PO SCH ×4 (08:46→18:20)
[2021-07-26] MEDS: INSULIN LISPRO 100 UNITS/ML SUBCUT SCH ×4 (08:47→21:20)
[2021-07-26 10:11] LABS: PLATELET ESTIMATE DECREASED
[2021-07-26 10:15] LABS: INR 4.7
[2021-07-26] MEDS: OMEPRAZOLE 20MG CAPSULE EXTENDED RELEASE PO SCH (11:54)
[2021-07-26] MEDS: DOXYCYCLINE 100 MG in DEXT 5% WATER 100 ML IV SCH ×2 (11:55→23:44)
[2021-07-26] MEDS: INSULIN GLARGINE UD 100 UNITS/ML SYR SUBCUT SCH ×2 (11:55→21:50)
[2021-07-26] MEDS: MEROPENEM 1,000 MG in SODIUM CHLORIDE 0.9% 100 ML IV SCH (21:28)
[2021-07-26] MEDS: FLUCONAZOLE 400MG/200ML BAG 200 ML IV SCH (21:29)
[2021-07-27] VITALS (11 sets, daily range): BP systolic 122–169; BP diastolic 64–87
[2021-07-27] MEDS: OMEPRAZOLE 20MG CAPSULE EXTENDED RELEASE PO SCH (06:39)
[2021-07-27] MEDS: BLOOD SUGAR DIAGNOSTIC STRIP TEST SCH ×4 (07:54→21:06)
[2021-07-27] MEDS ORDERED: INFLUENZA VACCINE 05/PF 0.5 ML SYRINGE IM ONE (08:00)
[2021-07-27] MEDS: HYDROCORTISONE SOD SUCCINATE 100 MG/2 ML VIAL IV SCH (08:09)
[2021-07-27] MEDS: CALCIUM CARBONATE 500MG TABLET CHEW PO SCH ×3 (08:09→17:34)
[2021-07-27] MEDS: CALCITRIOL 0.25MCG CAPSULE PO SCH (08:09)
[2021-07-27] MEDS: INSULIN LISPRO 100 UNITS/ML SUBCUT SCH ×4 (08:10→21:10)
[2021-07-27] MEDS: DOXYCYCLINE 100 MG in DEXT 5% WATER 100 ML IV SCH (11:06)
[2021-07-27] MEDS: INSULIN GLARGINE UD 100 UNITS/ML SYR SUBCUT SCH ×2 (11:10→22:00)
[2021-07-27 11:21] LABS: HEMATOCRIT. 33.8 % (42.0-52.0); MEAN CORPUSCULAR VOLUME 76.9 fL (80.0-94.0); MEAN PLATELET VOLUME 9.8 fl (7.4-10.4); PLATELET 104 x1000/uL (130-400); RED BLOOD CELL COUNT 4.39 mill/uL (4.7-6.1)
[2021-07-27 11:34] LABS: PROTHROMBIN TIME 56.5 sec (9.6-11.0)
[2021-07-27 11:44] LABS: INR 6.1
[2021-07-27 15:15] LABS: PLATELET ESTIMATE DECREASED
[2021-07-27] MEDS: MEROPENEM 1,000 MG in SODIUM CHLORIDE 0.9% 100 ML IV SCH (22:18)
[2021-07-28] VITALS (11 sets, daily range): BP systolic 119–153; BP diastolic 67–102
[2021-07-28] MEDS: FLUCONAZOLE 400MG/200ML BAG 200 ML IV SCH (00:15)
[2021-07-28] MEDS: DOXYCYCLINE 100 MG in DEXT 5% WATER 100 ML IV SCH (01:36)
[2021-07-28] MEDS: BLOOD SUGAR DIAGNOSTIC STRIP TEST SCH ×4 (07:30→20:27)
[2021-07-28] MEDS: INSULIN LISPRO 100 UNITS/ML SUBCUT SCH ×4 (08:00→21:02)
[2021-07-28 08:35] LABS: PROTHROMBIN TIME 54.5 sec (9.6-11.0)
[2021-07-28] MEDS: CALCIUM CARBONATE 500MG TABLET CHEW PO SCH ×3 (08:41→17:51)
[2021-07-28] MEDS: HYDROCORTISONE SOD SUCCINATE 100 MG/2 ML VIAL IV SCH (08:42)
[2021-07-28] MEDS: OMEPRAZOLE 20MG CAPSULE EXTENDED RELEASE PO SCH (08:42)
[2021-07-28] MEDS: CALCITRIOL 0.25MCG CAPSULE PO SCH (08:42)
[2021-07-28 08:58] LABS: BASOPHILS % 0.1 % (0.0-2.0); EOSINOPHILS % 1.2 % (0.0-5.0); HEMATOCRIT. 31.8 % (42.0-52.0); HEMOGLOBIN. 10.2 g/dL (14.0-18.0); LYMPHOCYTES % 9.6 % (20.0-50.0); MEAN CORPUSCULAR HEMOGLOBIN 24.6 pg (28.0-32.0); MEAN CORPUSCULAR VOLUME 76.3 fL (80.0-94.0); MEAN PLATELET VOLUME 9.5 fl (7.4-10.4); NEUTROPHILS % 84.1 % (40.0-76.0); PLATELET 106 x1000/uL (130-400); RED BLOOD CELL COUNT 4.17 mill/uL (4.7-6.1); RED CELL DISTRIBUTION WIDTH 16.2 % (11.6-14.6)
[2021-07-28 09:02] LABS: INR 5.8
[2021-07-28 09:19] LABS: CHLORIDE 111 mEq/L (98-107)
[2021-07-28 09:30] LABS: PHOSPHORUS 8.6 mg/dL (2.5-4.9)
[2021-07-28] MEDS: INSULIN GLARGINE UD 100 UNITS/ML SYR SUBCUT SCH ×2 (11:10→21:02)
[2021-07-28] MEDS: ACETAMINOPHEN 325MG TABLET PO PRN (16:24)
[2021-07-29] VITALS (7 sets, daily range): BP systolic 119–142; BP diastolic 60–79
[2021-07-29] MEDS: BLOOD SUGAR DIAGNOSTIC STRIP TEST SCH ×4 (07:30→21:03)
[2021-07-29] MEDS: INSULIN LISPRO 100 UNITS/ML SUBCUT SCH ×4 (08:00→21:04)
[2021-07-29] MEDS: HYDROCORTISONE SOD SUCCINATE 100 MG/2 ML VIAL IV SCH (08:33)
[2021-07-29] MEDS: OMEPRAZOLE 20MG CAPSULE EXTENDED RELEASE PO SCH (08:33)
[2021-07-29] MEDS: CALCITRIOL 0.25MCG CAPSULE PO SCH (08:34)
[2021-07-29] MEDS: CALCIUM CARBONATE 500MG TABLET CHEW PO SCH ×3 (08:34→17:42)
[2021-07-29 08:52] LABS: BASOPHILS % 0.2 % (0.0-2.0); EOSINOPHILS % 0.8 % (0.0-5.0); HEMATOCRIT. 33.5 % (42.0-52.0); HEMOGLOBIN. 10.6 g/dL (14.0-18.0); LYMPHOCYTES % 10.3 % (20.0-50.0); MEAN CORPUSCULAR HEMOGLOBIN 24.2 pg (28.0-32.0); MEAN CORPUSCULAR VOLUME 76.8 fL (80.0-94.0); MEAN PLATELET VOLUME 8.8 fl (7.4-10.4); MONOCYTES % 4.2 % (2.0-8.0); NEUTROPHILS % 84.5 % (40.0-76.0); PLATELET 111 x1000/uL (130-400); RED BLOOD CELL COUNT 4.37 mill/uL (4.7-6.1); RED CELL DISTRIBUTION WIDTH 16.9 % (11.6-14.6)
[2021-07-29 08:59] LABS: PROTHROMBIN TIME 44.1 sec (9.6-11.0)
[2021-07-29 09:43] LABS: PHOSPHORUS 7.5 mg/dL (2.5-4.9)
[2021-07-29] MEDS ORDERED: POTASSIUM CHLORIDE 20MEQ TABLET SR PO NR (10:30)
[2021-07-29 10:32] LABS: INR 4.6
[2021-07-29] MEDS: DEXTROSE 5% WATER 1,000 ML IV SCH (10:36)
[2021-07-29] MEDS: INSULIN GLARGINE UD 100 UNITS/ML SYR SUBCUT SCH ×2 (10:38→21:05)
[2021-07-29] MEDS: ACETAMINOPHEN 325MG TABLET PO PRN (16:02)
[2021-07-30] VITALS (10 sets, daily range): BP systolic 124–154; BP diastolic 55–83
[2021-07-30] MEDS: DEXTROSE 5% WATER 1,000 ML IV SCH (04:33)
[2021-07-30 06:27] LABS: BASOPHILS % 0.2 % (0.0-2.0); HEMATOCRIT. 30.2 % (42.0-52.0); HEMOGLOBIN. 9.8 g/dL (14.0-18.0); LYMPHOCYTES % 11.5 % (20.0-50.0); MEAN CORPUSCULAR HEMOGLOBIN 24.8 pg (28.0-32.0); MEAN CORPUSCULAR VOLUME 76.5 fL (80.0-94.0); MEAN PLATELET VOLUME 9.3 fl (7.4-10.4); MONOCYTES % 5.6 % (2.0-8.0); NEUTROPHILS % 81.7 % (40.0-76.0); PLATELET 119 x1000/uL (130-400); RED BLOOD CELL COUNT 3.95 mill/uL (4.7-6.1); RED CELL DISTRIBUTION WIDTH 16.5 % (11.6-14.6)
[2021-07-30 06:28] LABS: PROTHROMBIN TIME 46.9 sec (9.6-11.0)
[2021-07-30] MEDS: BLOOD SUGAR DIAGNOSTIC STRIP TEST SCH ×4 (07:30→21:00)
[2021-07-30] MEDS: INSULIN LISPRO 100 UNITS/ML SUBCUT SCH ×4 (08:00→21:00)
[2021-07-30] MEDS ORDERED: POTASSIUM CHLORIDE 20MEQ TABLET SR PO SCH (09:15)
[2021-07-30] MEDS: OMEPRAZOLE 20MG CAPSULE EXTENDED RELEASE PO SCH (09:32)
[2021-07-30] MEDS: CALCITRIOL 0.25MCG CAPSULE PO SCH (09:32)
[2021-07-30] MEDS: HYDROCORTISONE SOD SUCCINATE 100 MG/2 ML VIAL IV SCH (09:32)
[2021-07-30] MEDS: CALCIUM CARBONATE 500MG TABLET CHEW PO SCH ×3 (09:33→18:25)
[2021-07-30] MEDS: DEXT 5% WATER + KCL 20MEQ/L 1,000 ML IV SCH ×2 (10:21→18:25)
[2021-07-30] MEDS: INSULIN GLARGINE UD 100 UNITS/ML SYR SUBCUT SCH ×2 (10:22→22:06)
[2021-07-30] MEDS: ACETAMINOPHEN 325MG TABLET PO PRN (10:28)
[2021-07-30 12:34] LABS: PHOSPHORUS 6.1 mg/dL (2.5-4.9)
[2021-07-30] MEDS: POTASSIUM CHLORIDE 20MEQ TABLET SR PO NR ×2 (20:52→22:01)
[2021-07-31] VITALS (7 sets, daily range): BP systolic 116–142; BP diastolic 51–82
[2021-07-31 04:12] LABS: A/G RATIO 0.7 (0.7-1.7); ALBUMIN 2.1 g/dL (2.9-4.4); ALPHA-1-GLOBULIN 0.3 g/dL (0.0-0.4); ALPHA-2-GLOBULIN 0.4 g/dL (0.4-1.0); BETA GLOBULIN 0.7 g/dL (0.7-1.3); GAMMA GLOBULINS 1.8 g/dL (0.4-1.8); GLOBULIN TOTAL 3.1 g/dL (2.2-3.9); M-SPIKE 0.4 g/dL (Not Observed); TOTAL PROTEIN SERUM 5.2 g/dL (6.0-8.5)
[2021-07-31 05:33] LABS: BASOPHILS % 0.6 % (0.0-2.0); EOSINOPHILS % 1.2 % (0.0-5.0); HEMATOCRIT. 30.5 % (42.0-52.0); HEMOGLOBIN. 9.7 g/dL (14.0-18.0); LYMPHOCYTES % 12.5 % (20.0-50.0); MEAN CORPUSCULAR VOLUME 78.9 fL (80.0-94.0); MEAN PLATELET VOLUME 8.7 fl (7.4-10.4); MONOCYTES % 7.2 % (2.0-8.0); NEUTROPHILS % 78.5 % (40.0-76.0); PLATELET 127 x1000/uL (130-400); RED BLOOD CELL COUNT 3.86 mill/uL (4.7-6.1); RED CELL DISTRIBUTION WIDTH 17.7 % (11.6-14.6)
[2021-07-31 05:35] LABS: PROTHROMBIN TIME 44.4 sec (9.6-11.0)
[2021-07-31 06:56] LABS: PHOSPHORUS 4.9 mg/dL (2.5-4.9)
[2021-07-31] MEDS: DEXT 5% WATER + KCL 20MEQ/L 1,000 ML IV SCH ×3 (07:22→18:23)
[2021-07-31 07:39] LABS: INR 4.7
[2021-07-31] MEDS: BLOOD SUGAR DIAGNOSTIC STRIP TEST SCH ×4 (08:00→21:00)
[2021-07-31] MEDS: INSULIN LISPRO 100 UNITS/ML SUBCUT SCH ×4 (08:00→21:00)
[2021-07-31] MEDS: CALCITRIOL 0.25MCG CAPSULE PO SCH (09:54)
[2021-07-31] MEDS: CALCIUM CARBONATE 500MG TABLET CHEW PO SCH ×3 (09:54→18:24)
[2021-07-31] MEDS: OMEPRAZOLE 20MG CAPSULE EXTENDED RELEASE PO SCH (09:55)
[2021-07-31] MEDS: HYDROCORTISONE SOD SUCCINATE 100 MG/2 ML VIAL IV SCH (09:55)
[2021-07-31] MEDS ORDERED: INSULIN GLARGINE UD 100 UNITS/ML SYR SUBCUT SCH (10:00)
[2021-07-31] MEDS ORDERED: WARF-67 MT ×2 (10:47)
[2021-07-31] MEDS ORDERED: INSU100I28 SQ ×2 (10:47)
[2021-08-01] VITALS: BP 128/76
[2021-08-01] MEDS: DEXT 5% WATER + KCL 20MEQ/L 1,000 ML IV SCH (03:09)
[2021-08-01 04:00] VITALS: BP 117/53
[2021-08-01] MEDS: OMEPRAZOLE 20MG CAPSULE EXTENDED RELEASE PO SCH (05:22)
[2021-08-01 05:54] LABS: INR 3.8; PROTHROMBIN TIME 37.1 sec (9.6-11.0)
[2021-08-01 05:55] LABS: BASOPHILS % 0.9 % (0.0-2.0); EOSINOPHILS % 1.3 % (0.0-5.0); HEMATOCRIT. 26.4 % (42.0-52.0); HEMOGLOBIN. 8.6 g/dL (14.0-18.0); LYMPHOCYTES % 15.5 % (20.0-50.0); MEAN CORPUSCULAR HEMOGLOBIN 25.1 pg (28.0-32.0); MEAN CORPUSCULAR VOLUME 77.2 fL (80.0-94.0); MEAN PLATELET VOLUME 8.5 fl (7.4-10.4); MONOCYTES % 7.1 % (2.0-8.0); NEUTROPHILS % 75.2 % (40.0-76.0); PLATELET 141 x1000/uL (130-400); RED BLOOD CELL COUNT 3.42 mill/uL (4.7-6.1); RED CELL DISTRIBUTION WIDTH 16.8 % (11.6-14.6)
[2021-08-01 06:02] LABS: CHLORIDE 118 mEq/L (98-107)
[2021-08-01 06:20] LABS: PHOSPHORUS 3.9 mg/dL (2.5-4.9)
[2021-08-01 08:00] VITALS: BP 133/79
[2021-08-01] MEDS: INSULIN LISPRO 100 UNITS/ML SUBCUT SCH ×4 (08:00→21:15)
[2021-08-01] MEDS: BLOOD SUGAR DIAGNOSTIC STRIP TEST SCH ×4 (08:01→21:15)
[2021-08-01 08:08] LABS: BARBITURATE SCREEN Negative ug/mL (Cutoff:0.1); BENZODIAZEPINE SCREEN Negative ng/mL (Cutoff:20); OPIATES SCREEN ++POSITIVE++ ng/mL (Cutoff:5); PHENCYCLIDINE SCREEN Negative ng/mL (Cutoff:8)
[2021-08-01] MEDS: CALCIUM CARBONATE 500MG TABLET CHEW PO SCH ×3 (08:31→18:09)
[2021-08-01] MEDS: HYDROCORTISONE SOD SUCCINATE 100 MG/2 ML VIAL IV SCH (08:31)
[2021-08-01] MEDS: CALCITRIOL 0.25MCG CAPSULE PO SCH (08:31)
[2021-08-01] MEDS ORDERED: INSU100I28 SQ (09:47)
[2021-08-01] MEDS: INSULIN GLARGINE UD 100 UNITS/ML SYR SUBCUT SCH (10:20)
[2021-08-01] MEDS: POTASSIUM CHLORIDE INJ 10 MEQ in DEXTROSE 5% WATER 1,000 ML IV SCH ×2 (11:37→20:16)
[2021-08-01 12:00] VITALS: BP 142/87
[2021-08-01 16:00] VITALS: BP 133/81
[2021-08-01 20:00] VITALS: BP 124/87
[2021-08-02] VITALS: BP 123/68
[2021-08-02] MEDS: POTASSIUM CHLORIDE INJ 10 MEQ in DEXTROSE 5% WATER 1,000 ML IV SCH (02:06)
[2021-08-02 03:35] VITALS: BP 139/76
[2021-08-02 06:15] LABS: INR 2.3; PROTHROMBIN TIME 23.6 sec (9.6-11.0)
[2021-08-02 06:17] LABS: BASOPHILS % 0.8 % (0.0-2.0); EOSINOPHILS % 1.7 % (0.0-5.0); HEMATOCRIT. 30.8 % (42.0-52.0); HEMOGLOBIN. 9.9 g/dL (14.0-18.0); LYMPHOCYTES % 20.7 % (20.0-50.0); MEAN CORPUSCULAR HEMOGLOBIN 24.9 pg (28.0-32.0); MEAN CORPUSCULAR VOLUME 77.7 fL (80.0-94.0); MEAN PLATELET VOLUME 8.5 fl (7.4-10.4); NEUTROPHILS % 70.8 % (40.0-76.0); PLATELET 168 x1000/uL (130-400); RED BLOOD CELL COUNT 3.96 mill/uL (4.7-6.1); RED CELL DISTRIBUTION WIDTH 18.5 % (11.6-14.6)
[2021-08-02 06:52] LABS: CHLORIDE 116 mEq/L (98-107)
[2021-08-02 06:58] LABS: PHOSPHORUS 3.7 mg/dL (2.5-4.9)
[2021-08-02] MEDS: BLOOD SUGAR DIAGNOSTIC STRIP TEST SCH ×4 (07:54→21:05)
[2021-08-02] MEDS: INSULIN LISPRO 100 UNITS/ML SUBCUT SCH ×4 (07:54→21:00)
[2021-08-02] MEDS: OMEPRAZOLE 20MG CAPSULE EXTENDED RELEASE PO SCH (07:58)
[2021-08-02] MEDS: CALCIUM CARBONATE 500MG TABLET CHEW PO SCH ×3 (07:58→18:48)
[2021-08-02 08:05] VITALS: BP 131/50
[2021-08-02] MEDS: HYDROCORTISONE SOD SUCCINATE 100 MG/2 ML VIAL IV SCH (09:38)
[2021-08-02] MEDS: CALCITRIOL 0.25MCG CAPSULE PO SCH (09:38)
[2021-08-02] MEDS: INSULIN GLARGINE UD 100 UNITS/ML SYR SUBCUT PRN (09:38)
[2021-08-02] MEDS: INSULIN GLARGINE UD 100 UNITS/ML SYR SUBCUT SCH (11:11)
[2021-08-02 12:04] VITALS: BP 118/64
[2021-08-02] MEDS ORDERED: MAGNESIUM 2 G PREMIX 50 ML IV SCH (15:00)
[2021-08-02] MEDS ORDERED: WARFARIN SODIUM 3MG TABLET PO NR (18:00)
[2021-08-02 20:00] VITALS: BP 126/68
[2021-08-03] VITALS (7 sets, daily range): BP systolic 120–146; BP diastolic 69–88
[2021-08-03] MEDS: INSULIN LISPRO 100 UNITS/ML SUBCUT SCH ×4 (08:00→21:22)
[2021-08-03] MEDS: CALCIUM CARBONATE 500MG TABLET CHEW PO SCH ×3 (08:00→18:11)
[2021-08-03 08:09] LABS: BASOPHILS % 1.1 % (0.0-2.0); EOSINOPHILS % 2.6 % (0.0-5.0); HEMATOCRIT. 30.2 % (42.0-52.0); HEMOGLOBIN. 9.5 g/dL (14.0-18.0); LYMPHOCYTES % 23.9 % (20.0-50.0); MEAN CORPUSCULAR HEMOGLOBIN 24.7 pg (28.0-32.0); MEAN CORPUSCULAR VOLUME 78.3 fL (80.0-94.0); MEAN PLATELET VOLUME 8.7 fl (7.4-10.4); MONOCYTES % 7.6 % (2.0-8.0); NEUTROPHILS % 64.8 % (40.0-76.0); PLATELET 187 x1000/uL (130-400); RED BLOOD CELL COUNT 3.86 mill/uL (4.7-6.1); RED CELL DISTRIBUTION WIDTH 18.3 % (11.6-14.6)
[2021-08-03] MEDS: OMEPRAZOLE 20MG CAPSULE EXTENDED RELEASE PO SCH (08:12)
[2021-08-03] MEDS: BLOOD SUGAR DIAGNOSTIC STRIP TEST SCH ×4 (08:12→21:21)
[2021-08-03 08:29] LABS: INR 1.6; PROTHROMBIN TIME 16.2 sec (9.6-11.0)
[2021-08-03] MEDS: HYDROCORTISONE SOD SUCCINATE 100 MG/2 ML VIAL IV SCH (09:14)
[2021-08-03] MEDS: CALCITRIOL 0.25MCG CAPSULE PO SCH (09:15)
[2021-08-03 09:37] LABS: CHLORIDE 111 mEq/L (98-107)
[2021-08-03 09:42] LABS: PHOSPHORUS 3.3 mg/dL (2.5-4.9)
[2021-08-03] MEDS: INSULIN GLARGINE UD 100 UNITS/ML SYR SUBCUT SCH (10:26)
[2021-08-03] MEDS: MAGNESIUM OXIDE 400MG TABLET PO SCH ×2 (13:36→17:12)
[2021-08-03] MEDS ORDERED: MAGNESIUM 2 G PREMIX 50 ML IV SCH (14:00)
[2021-08-03] MEDS ORDERED: WARFARIN SODIUM 5MG TABLET PO SCH (18:00)
[2021-08-04] VITALS: BP 132/69
[2021-08-04 04:00] VITALS: BP 122/87
[2021-08-04 06:04] LABS: EOSINOPHILS % 2.2 % (0.0-5.0); HEMOGLOBIN. 8.6 g/dL (14.0-18.0); LYMPHOCYTES % 22.2 % (20.0-50.0); MEAN CORPUSCULAR HEMOGLOBIN 24.9 pg (28.0-32.0); MEAN CORPUSCULAR VOLUME 77.7 fL (80.0-94.0); MEAN PLATELET VOLUME 8.4 fl (7.4-10.4); MONOCYTES % 6.6 % (2.0-8.0); PLATELET 139 x1000/uL (130-400); RED BLOOD CELL COUNT 3.47 mill/uL (4.7-6.1); RED CELL DISTRIBUTION WIDTH 17.7 % (11.6-14.6)
[2021-08-04 06:11] LABS: INR 1.7; PROTHROMBIN TIME 17.1 sec (9.6-11.0)
[2021-08-04 07:07] LABS: PHOSPHORUS 3.9 mg/dL (2.5-4.9)
[2021-08-04 08:00] VITALS: BP 129/82
[2021-08-04] MEDS: INSULIN LISPRO 100 UNITS/ML SUBCUT SCH ×4 (08:00→21:44)
[2021-08-04] MEDS: BLOOD SUGAR DIAGNOSTIC STRIP TEST SCH ×4 (08:04→21:45)
[2021-08-04] MEDS: CALCIUM CARBONATE 500MG TABLET CHEW PO SCH (08:05)
[2021-08-04] MEDS: CALCITRIOL 0.25MCG CAPSULE PO SCH (08:05)
[2021-08-04] MEDS: MAGNESIUM OXIDE 400MG TABLET PO SCH ×2 (08:05→17:29)
[2021-08-04] MEDS: OMEPRAZOLE 20MG CAPSULE EXTENDED RELEASE PO SCH (08:05)
[2021-08-04] MEDS: HYDROCORTISONE SOD SUCCINATE 100 MG/2 ML VIAL IV SCH (08:06)
[2021-08-04] MEDS: INSULIN GLARGINE UD 100 UNITS/ML SYR SUBCUT SCH (10:00)
[2021-08-04 12:00] VITALS: BP 130/76
[2021-08-04] MEDS ORDERED: MAGNESIUM OXIDE 400MG TABLET PO SCH (12:00)
[2021-08-04 16:00] VITALS: BP 132/82
[2021-08-04] MEDS ORDERED: WARFARIN SODIUM 5MG TABLET PO SCH (18:00)
[2021-08-04 20:00] VITALS: BP 124/57
[2021-08-04] MEDS ORDERED: WARFARIN SODIUM 2.5MG TABLET PO NR (22:30)
[2021-08-05] VITALS: BP 129/70
[2021-08-05 04:00] VITALS: BP 132/73
[2021-08-05 05:44] LABS: INR 1.9; PROTHROMBIN TIME 19.3 sec (9.6-11.0)
[2021-08-05 05:56] LABS: CHLORIDE 111 mEq/L (98-107)
[2021-08-05 06:08] LABS: EOSINOPHILS % 3.4 % (0.0-5.0); HEMATOCRIT. 23.5 % (42.0-52.0); HEMOGLOBIN. 7.5 g/dL (14.0-18.0); LYMPHOCYTES % 27.7 % (20.0-50.0); MEAN CORPUSCULAR HEMOGLOBIN 24.9 pg (28.0-32.0); MEAN CORPUSCULAR VOLUME 77.9 fL (80.0-94.0); MEAN PLATELET VOLUME 8.5 fl (7.4-10.4); MONOCYTES % 8.3 % (2.0-8.0); NEUTROPHILS % 59.6 % (40.0-76.0); PLATELET 141 x1000/uL (130-400); RED BLOOD CELL COUNT 3.01 mill/uL (4.7-6.1); RED CELL DISTRIBUTION WIDTH 17.8 % (11.6-14.6)
[2021-08-05 06:15] LABS: PHOSPHORUS 3.9 mg/dL (2.5-4.9)
[2021-08-05] MEDS: BLOOD SUGAR DIAGNOSTIC STRIP TEST SCH ×2 (07:30→12:35)
[2021-08-05 08:00] VITALS: BP 125/75
[2021-08-05] MEDS: MAGNESIUM OXIDE 400MG TABLET PO SCH (08:29)
[2021-08-05] MEDS: OMEPRAZOLE 20MG CAPSULE EXTENDED RELEASE PO SCH (08:29)
[2021-08-05] MEDS: INSULIN LISPRO 100 UNITS/ML SUBCUT SCH ×2 (08:32→14:17)
[2021-08-05] MEDS ORDERED: CHOLECALCIFEROL (D3) 1000 UNIT TABLET PO SCH (09:00)
[2021-08-05] MEDS ORDERED: CALCIUM CARBONATE 500MG TABLET CHEW PO SCH (09:00)
[2021-08-05] MEDS: INSULIN GLARGINE UD 100 UNITS/ML SYR SUBCUT SCH (10:29)
[2021-08-05] MEDS ORDERED: WARF7.5T48 MT (11:03)
[2021-08-05] MEDS ORDERED: LANTUSUD SUBCUT (11:03)
[2021-08-05] MEDS ORDERED: OMEP20CA14 PO (11:03)
[2021-08-05] MEDS ORDERED: CHOL-36 PO (11:03)
[2021-08-05] MEDS ORDERED: CALC500T35 PO (11:03)
[2021-08-05 11:48] VITALS: BP 134/86
[2021-08-05 12:00] VITALS: BP 143/82
[2021-08-05] MEDS ORDERED: MAGNESIUM OXIDE 400MG TABLET PO NR (12:45)
[2021-08-05] MEDS ORDERED: WARFARIN SODIUM 7.5MG TABLET PO SCH ×3 (13:00→18:00)
[2021-08-05] MEDS ORDERED: MAGNESIUM OXIDE 400MG TABLET PO SCH (17:00)
== END 2021-08-05 16:49 | disposition home health service (06) | DRG 720 ==
LOC: ER 10:26 → 7EST 13:53 → EDBEDREQ 13:54 → EDBEDREQTM 13:54 → ENRESERV 15:08 → 7WST 07-17 01:15 → 6WST 07-17 14:54 → CVICU 07-17 23:30 → 5EST 07-26 18:20
PROVIDERS: ADMIT Internal Medicine; ATTEND Internal Medicine
PROC: 02HV33Z Insertion of Infusion Device into Superior Vena Cava, Percutaneous Approach (ICD-10-PCS; principal; 2021-07-18)
PROC: B548ZZA Ultrasonography of Superior Vena Cava, Guidance (ICD-10-PCS; 2021-07-18)
PROC: 5A1D70Z Performance of Urinary Filtration, Intermittent, Less than 6 Hours Per Day (ICD-10-PCS; 2021-07-18)
PROC: 06HY33Z Insertion of Infusion Device into Lower Vein, Percutaneous Approach (ICD-10-PCS; 2021-07-18)
PROC: B54BZZA Ultrasonography of Right Lower Extremity Veins, Guidance (ICD-10-PCS; 2021-07-18)
PROC: 5A1D70Z Performance of Urinary Filtration, Intermittent, Less than 6 Hours Per Day (ICD-10-PCS; 2021-07-19)
PROC: 5A09357 Assistance with Respiratory Ventilation, Less than 24 Consecutive Hours, Continuous Positive Airway Pressure (ICD-10-PCS; 2021-07-19)
PROC: 5A1D70Z Performance of Urinary Filtration, Intermittent, Less than 6 Hours Per Day (ICD-10-PCS; 2021-07-21)
PROC: 4A10X4Z Monitoring of Central Nervous Electrical Activity, External Approach (ICD-10-PCS; 2021-07-23)
PROC: 5A1D70Z Performance of Urinary Filtration, Intermittent, Less than 6 Hours Per Day (ICD-10-PCS; 2021-07-23)
PROC: 5A1D70Z Performance of Urinary Filtration, Intermittent, Less than 6 Hours Per Day (ICD-10-PCS; 2021-07-24)
PROC: 5A1D70Z Performance of Urinary Filtration, Intermittent, Less than 6 Hours Per Day (ICD-10-PCS; 2021-07-26)
DX: A41.9 Sepsis, unspecified organism (principal); J96.01 Acute respiratory failure with hypoxia; N17.0 Acute kidney failure with tubular necrosis; K72.00 Acute and subacute hepatic failure without coma; G00.9 Bacterial meningitis, unspecified; R65.21 Severe sepsis with septic shock; D68.9 Coagulation defect, unspecified; E43 Unspecified severe protein-calorie malnutrition; E11.649 Type 2 diabetes mellitus with hypoglycemia without coma; E83.39 Other disorders of phosphorus metabolism; G92.8 Other toxic encephalopathy; E83.51 Hypocalcemia; E87.2 Acidosis; D69.6 Thrombocytopenia, unspecified; E11.22 Type 2 diabetes mellitus with diabetic chronic kidney disease; D50.9 Iron deficiency anemia, unspecified; E11.65 Type 2 diabetes mellitus with hyperglycemia; N39.0 Urinary tract infection, site not specified; R74.01 Elevation of levels of liver transaminase levels; I21.A1 Myocardial infarction type 2; N18.9 Chronic kidney disease, unspecified; I12.9 Hypertensive chronic kidney disease with stage 1 through stage 4 chronic kidney disease, or unspecified chronic kidney disease; E87.5 Hyperkalemia; E83.42 Hypomagnesemia; Z20.822 Contact with and (suspected) exposure to COVID-19; R79.82 Elevated C-reactive protein (CRP); E87.3 Alkalosis; E87.1 Hypo-osmolality and hyponatremia; R79.89 Other specified abnormal findings of blood chemistry; R74.8 Abnormal levels of other serum enzymes; E87.6 Hypokalemia; I45.10 Unspecified right bundle-branch block; I34.1 Nonrheumatic mitral (valve) prolapse; I95.3 Hypotension of hemodialysis; E78.1 Pure hyperglyceridemia; E87.0 Hyperosmolality and hypernatremia; Z95.2 Presence of prosthetic heart valve; Z86.73 Personal history of transient ischemic attack (TIA), and cerebral infarction without residual deficits; Z82.49 Family history of ischemic heart disease and other diseases of the circulatory system; Z68.32 Body mass index [BMI] 32.0-32.9, adult; Z79.01 Long term (current) use of anticoagulants; R00.0 Tachycardia, unspecified
CPT/HCPCS: 36415; 36556; 36600; 70551; 71045; 71250; 74176; 76700; 76770; 76857; 76937; 78582; 80048; 80053; 80061; 80076; 80202; 80307; 80320; 81003; 82010; 82140; 82248; 82330; 82375; 82533; 82550; 82553; 82607; 82728; 82746; 82784; 82805; 82962; 83010; 83036; 83520; 83540; 83550; 83605; 83615; 83735; 84100; 84145; 84155; 84165; 84439; 84443; 84481; 84484; 84550; 85025; 85379; 85384; 86038; 86140; 86256; 86334; 86430; 86635; 86705; 86706; 86709; 86803; 87015; 87045; 87340; 87426; 87427; 87449; 87899; 90686; 92610; 93005; 93306; 93970; 94660; 97110; 97116; 97162; 97166; 97530; 97535; 99291; A9558; C1752; J1450; J1644; J1720; J1815; J1940; J2185; J2370; J2405; J2543; J3370; J3475; J3480; J3490; J7030; J7040; J7050; J7060; J7070; L8514; P9047; U0003; U0005; A4315; G0480

== ENCOUNTER 2021-08-16 17:39 | Inpatient (IN) | payer MEDICAID ==
[~2021-08-16] VITALS: Ht 175.3 cm; Wt 97.5 kg
[~2021-08-16 17:39] MED LIST: CALC500T35 PO; CHOL-36 PO; LANTUSUD SUBCUT; OMEP20CA14 PO; WARF7.5T48 MT
[2021-08-17 00:53] LABS: BASOPHILS % 0.5 % (0.0-2.0); EOSINOPHILS % 3.9 % (0.0-5.0); HEMOGLOBIN. 8.1 g/dL (14.0-18.0); LYMPHOCYTES % 47.3 % (20.0-50.0); MEAN CORPUSCULAR HEMOGLOBIN 25.2 pg (28.0-32.0); MEAN CORPUSCULAR VOLUME 77.8 fL (80.0-94.0); MEAN PLATELET VOLUME 7.2 fl (7.4-10.4); MONOCYTES % 13.5 % (2.0-8.0); NEUTROPHILS % 34.8 % (40.0-76.0); PLATELET 182 x1000/uL (130-400); RED BLOOD CELL COUNT 3.22 mill/uL (4.7-6.1); RED CELL DISTRIBUTION WIDTH 17.8 % (11.6-14.6)
[2021-08-17 00:59] LABS: CHLORIDE 112 mEq/L (98-107)
[2021-08-17] MEDS ORDERED: FUROSEMIDE 20MG/2ML VIAL IVP ONE (02:30)
[2021-08-17 11:19] VITALS: BP 145/74
[2021-08-17 12:00] VITALS: BP 142/76
[2021-08-17] MEDS ORDERED: MAGNESIUM/ALUMINUM HYDROXIDE/SIMETHICONE 30ML UDC PO PRN (15:30)
[2021-08-17] MEDS ORDERED: HYDROCODONE/ACETAMINOPHEN 5/325MG TABLET PO PRN (15:30)
[2021-08-17] MEDS ORDERED: DOCUSATE SODIUM 100MG CAPSULE PO PRN (15:30)
[2021-08-17] MEDS ORDERED: CLONIDINE 0.1MG TABLET PO PRN (15:30)
[2021-08-17] MEDS ORDERED: ENOXAPARIN 40MG/0.4ML SYR SUBCUT SCH (15:30)
[2021-08-17] MEDS ORDERED: ACETAMINOPHEN 325MG TABLET PO PRN (15:30)
[2021-08-17] MEDS ORDERED: IPRATROPIUM/ALBUTEROL 0.5-3(2.5)MG/3ML NEB HHN PRN (15:30)
[2021-08-17] MEDS ORDERED: ONDANSETRON HCL 4MG/2ML INJ IV PRN (15:30)
[2021-08-17 16:00] VITALS: BP 140/72
[2021-08-17 17:56] LABS: INR 2.3; PROTHROMBIN TIME 22.7 sec (9.6-11.0)
[2021-08-17] MEDS ORDERED: WARFARIN SODIUM 7.5MG TABLET PO NR (18:30)
[2021-08-17] MEDS: FUROSEMIDE 40MG/4ML VIAL IVP SCH (18:35)
[2021-08-17 20:00] VITALS: BP 119/69
[2021-08-18] VITALS: BP 127/79
[2021-08-18 00:12] LABS: CREATINE KINASE MB FRACTION 1.8 ng/mL (0.5-3.6)
[2021-08-18 04:00] VITALS: BP 118/64
[2021-08-18] MEDS: OMEPRAZOLE 20MG CAPSULE EXTENDED RELEASE PO SCH (05:13)
[2021-08-18] MEDS: FUROSEMIDE 40MG/4ML VIAL IVP SCH ×2 (05:13→18:51)
[2021-08-18 07:46] LABS: INR 2.5; PROTHROMBIN TIME 24.7 sec (9.6-11.0)
[2021-08-18 07:47] LABS: CHLORIDE 106 mEq/L (98-107)
[2021-08-18 07:48] LABS: BASOPHILS % 0.5 % (0.0-2.0); EOSINOPHILS % 3.8 % (0.0-5.0); HEMATOCRIT. 26.4 % (42.0-52.0); HEMOGLOBIN. 8.8 g/dL (14.0-18.0); LYMPHOCYTES % 44.4 % (20.0-50.0); MEAN CORPUSCULAR HEMOGLOBIN 25.3 pg (28.0-32.0); MEAN CORPUSCULAR VOLUME 76.2 fL (80.0-94.0); MEAN PLATELET VOLUME 7.7 fl (7.4-10.4); MONOCYTES % 14.8 % (2.0-8.0); NEUTROPHILS % 36.5 % (40.0-76.0); PLATELET 271 x1000/uL (130-400); RED BLOOD CELL COUNT 3.47 mill/uL (4.7-6.1); RED CELL DISTRIBUTION WIDTH 17.5 % (11.6-14.6)
[2021-08-18 08:00] VITALS: BP 138/68
[2021-08-18] MEDS: CHOLECALCIFEROL (D3) 1000 UNIT TABLET PO SCH (08:06)
[2021-08-18] MEDS: CALCIUM CARBONATE 500MG TABLET CHEW PO SCH (08:06)
[2021-08-18 08:08] LABS: PHOSPHORUS 4.1 mg/dL (2.5-4.9)
[2021-08-18 08:09] LABS: LDL CHOLESTEROL 93 mg/dL (5-100)
[2021-08-18 08:11] LABS: T4 FREE 1.41 ng/dL (0.76-1.46)
[2021-08-18 08:15] LABS: CREATINE KINASE MB FRACTION 1.8 ng/mL (0.5-3.6); HDL CHOLESTEROL 75 mg/dL (40-59)
[2021-08-18] MEDS ORDERED: FUROSEMIDE 40MG/4ML VIAL IVP SCH (09:00)
[2021-08-18 12:00] VITALS: BP 132/64
[2021-08-18 16:00] VITALS: BP 119/65
[2021-08-18 16:25] LABS: CREATINE KINASE MB FRACTION 1.8 ng/mL (0.5-3.6)
[2021-08-18] MEDS ORDERED: WARFARIN SODIUM 7.5MG TABLET PO SCH (18:00)
[2021-08-18] MEDS ORDERED: DIPHENHYDRAMINE 25MG CAPSULE PO PRN (18:30)
[2021-08-18 20:00] VITALS: BP_SYST 100; BP_SYST 188; BP_DIAS 63
[2021-08-18] MEDS ORDERED: DEXTROSE 50% WATER 50ML SYRINGE IV PRN (20:30)
[2021-08-18] MEDS: BLOOD SUGAR DIAGNOSTIC STRIP TEST SCH (20:31)
[2021-08-18] MEDS: INSULIN LISPRO 100 UNITS/ML SUBCUT SCH (20:37)
[2021-08-19] VITALS: BP 106/78
[2021-08-19 04:00] VITALS: BP 116/78
[2021-08-19] MEDS: FUROSEMIDE 40MG/4ML VIAL IVP SCH (05:50)
[2021-08-19] MEDS: INSULIN LISPRO 100 UNITS/ML SUBCUT SCH ×2 (05:50→13:21)
[2021-08-19] MEDS: OMEPRAZOLE 20MG CAPSULE EXTENDED RELEASE PO SCH (05:50)
[2021-08-19] MEDS: BLOOD SUGAR DIAGNOSTIC STRIP TEST SCH ×2 (05:50→12:10)
[2021-08-19 07:39] LABS: CHLORIDE 105 mEq/L (98-107)
[2021-08-19 07:40] LABS: HEMATOCRIT. 26.6 % (42.0-52.0); HEMOGLOBIN. 8.8 g/dL (14.0-18.0); MEAN CORPUSCULAR HEMOGLOBIN 25.1 pg (28.0-32.0); MEAN CORPUSCULAR VOLUME 76.3 fL (80.0-94.0); MEAN PLATELET VOLUME 7.5 fl (7.4-10.4); PLATELET 292 x1000/uL (130-400); RED BLOOD CELL COUNT 3.49 mill/uL (4.7-6.1); RED CELL DISTRIBUTION WIDTH 17.9 % (11.6-14.6)
[2021-08-19 07:58] LABS: INR 2.4; PROTHROMBIN TIME 24.5 sec (9.6-11.0)
[2021-08-19 08:00] VITALS: BP 94/64
[2021-08-19] MEDS: CHOLECALCIFEROL (D3) 1000 UNIT TABLET PO SCH (08:59)
[2021-08-19] MEDS: CALCIUM CARBONATE 500MG TABLET CHEW PO SCH (08:59)
[2021-08-19 12:00] VITALS: BP 105/52
[2021-08-19] MEDS ORDERED: FURO-151 MT (13:19)
[2021-08-19 13:23] LABS: PLATELET ESTIMATE NORMAL
[2021-08-19 13:43] VITALS: BP 105/52
[2021-08-19] MEDS ORDERED: WARFARIN SODIUM 7.5MG TABLET PO NR (18:00)
== END 2021-08-19 17:45 | disposition home or self-care (01) | DRG 194 ==
LOC: ER 17:39 → 8WST 08-17 04:37 → ENRESERV 08-17 09:43
PROVIDERS: ADMIT Internal Medicine; ATTEND Internal Medicine
DX: I50.31 Acute diastolic (congestive) heart failure (principal); I21.A1 Myocardial infarction type 2; E11.649 Type 2 diabetes mellitus with hypoglycemia without coma; E11.22 Type 2 diabetes mellitus with diabetic chronic kidney disease; D64.9 Anemia, unspecified; I34.1 Nonrheumatic mitral (valve) prolapse; N18.9 Chronic kidney disease, unspecified; Z82.49 Family history of ischemic heart disease and other diseases of the circulatory system; Z95.2 Presence of prosthetic heart valve; Z20.822 Contact with and (suspected) exposure to COVID-19
CPT/HCPCS: 36415; 71045; 80048; 80053; 80061; 82553; 82962; 83036; 83735; 83880; 84100; 84439; 84443; 84484; 85025; 87426; 93005; 93306; 93970; 99291; J1815; J1940; Q0163